=== PATIENT | male | born 1955 | race Caucasian/White ===

== ENCOUNTER 2020-10-28 07:25 | Day surgery (SDC) | payer OTHER, MEDICARE ==
[~2020-10-28] VITALS: Ht 177.8 cm; Wt 100.0 kg
[~2020-10-28 07:25] MED LIST: CELLCEPT500 MG PO; ELIQUIS5 MG PO; PREDNISONE20 MG PO; PROSTATE PQ TA1 EACH PO; SYNTHROID100 MCG PO; ZESTRIL10 MG PO
--- NOTE | 2020-10-28 08:35 | NUR ---
PATIENT UP TO BATHROOM TO VOID. STEADY ON FEET. STARTED PRE-OP ANTIBIOTICS. INFUSING WELL. AT BEDSIDE, CALL LIGHT WITHIN REACH. NO OTHER NEEDS AT THIS TIME.
--- NOTE | 2020-10-28 09:55 | NUR ---
10/28/20 0955 Bianca Mtz 0948; PT ARRIVES TO PACU VIA STRETCHER FOR RECOVERY. NON AROUSABLE WITH OPA IN PLACE. O2 SATS STABLE >96% ON 10L VIA FACEMASK. OXYGEN TURNED DOWN TO 4L AND O2 SATS REMAIN >96%. RESP [facility] AND UNLABORED.
--- NOTE | 2020-10-29 16:02 | OR ---
[facility] [address] [place], [place] [address] Signed DATE OF OPERATION: 10/28/2020 SURGEON: Bora Presley MD PREOPERATIVE DIAGNOSES: 1. Surveillance. 2. Multiple medical comorbidities. POSTOPERATIVE DIAGNOSES: 1. Surveillance. 2. Multiple medical comorbidities. 3. Small polyp at 40 cm (excised) and sigmoid diverticulosis extensive. PROCEDURE: Total colonoscopy to cecum with cold morcellation polypectomy x1. ANESTHESIA: Intravenous sedation, propofol infusion, Bora Taylor CRNA. INDICATIONS: This 64-year-old white man is self-referred for surveillance colonoscopy. He last underwent colonoscopy by in [place], [place], which was said to be normal. He has no current symptoms of bleeding, diarrhea, or constipation and no family history of colon cancer. He has numerous medical problems including underlying interstitial lung disease diagnosed in 1985. He is a patient of Dr. Thomas, business administration program chair in [place], [place]. He is admitted at this time to undergo colonoscopy, understanding the risks of bleeding, infection, and perforation. His apixaban has been withheld. Preoperative antibiotic Ancef given based on joint replacement therapy and stress dose steroid, given persistent prednisone use. FINDINGS: The prep was excellent. Complete colonoscopy was undertaken to the cecum without question. Good visualization of the ileocecal valve and appendiceal orifice was noted. There were numerous diverticula of the sigmoid colon and scattered diverticula elsewhere. There was a small adenomatous-appearing polyp at 40 cm, which was excised with cold morcellation technique entirely. There were no known complications with the procedure. DESCRIPTION OF PROCEDURE: The patient was brought to the endoscopy suite and placed in lateral decubitus position, Electronically Signed By: BORA PRESLEY MD 10/29/20 1602 PATIENT NAME: KARIS GODINEZ OPERATIVE REPORT DATE OF : 51 REPORT #: [id number] PHYSICIAN: BORA PRESLEY MD PCP: GAETANO THOMAS REPORT IS CONFIDENTIAL AND NOT TO BE RELEASED WITHOUT AUTHORIZATION [facility] [address], [place] [address] Signed given intravenous sedation to point of deep sedation by the outreach representative with propofol infusional technique. Full cardiopulmonary monitoring was maintained. Preoperative antibiotic Ancef was given as well as hydrocortisone. Digital rectal examination was found to be normal. An Olympus video colonoscope was passed in the rectum and manipulated throughout the colon ultimately intubating the cecum itself. The ileocecal valve was normal. The scope was withdrawn from that point and examination undertaken showing scattered diverticula throughout the colon. At approximately 40 cm from the anal verge, there was an adenomatous-appearing polyp, this was excised with cold morcellation technique entirely. Numerous diverticula were seen distal to this in the sigmoid colon, none of them acutely inflamed. Retroflexed view showed some internal hemorrhoidal change, but no other findings of concern. The scope was straightened, withdrawn, and removed and the patient was taken to the recovery room in good condition. CONCLUDING DIAGNOSES: 1. Diverticulosis of sigmoid. 2. Small polyp, left colon. PLAN: Recommend repeat colonoscopy in 5 years sooner if clinically indicated. We would recommend restart of his Eliquis on Saturday (today is Saturday). He will return to the ongoing care of Dr. Thomas in [facility] as needed as well. Bora Presley MD JM/MODL /[id number] cc: Gaetano Thomas Copies: GAETANO THOMAS ~ Electronically Signed By: BORA PRESLEY MD 10/29/20 1602 PATIENT NAME: KARIS GODINEZ OPERATIVE REPORT DATE OF : 51 REPORT #: [id number] PHYSICIAN: BORA PRESLEY MD PCP: GAETANO THOMAS REPORT IS CONFIDENTIAL AND NOT TO BE RELEASED WITHOUT AUTHORIZATION
--- NOTE | 2020-10-31 12:11 | PATH ---
[facility] [address] [place], [place] [address] Signed SPECIMEN(S): A COLON POLYP AT 50 CM SPECIMEN SOURCE: A. COLON POLYP AT 50 CM CLINICAL HISTORY: Screening colonoscopy. Postop: Diverticulosis, polyp x 1. MICROSCOPIC DESCRIPTION: Histologic sections of all submitted blocks are examined by light microscopy. These findings, together with the gross examination, support the pathologic diagnosis. FINAL PATHOLOGIC DIAGNOSIS: Colon, polyp at 50 cm, polypectomy: - Fragments of tubular adenoma. - Negative for high-grade dysplasia or malignancy. NAL:cml:C2NR GROSS DESCRIPTION: The specimen, labeled "CB," and designated on the requisition "colon polypectomy at 50 cm," is received in formalin and consists of six fragments of pink-lockhart tissue (0.7 x 0.5 x 0.1 cm in aggregate). The specimen is submitted entirely in cassette (A1). AC (under the direct supervision of a pathologist The Gross Description was prepared using a voice recognition system. The report was reviewed for accuracy; however, sound-alike word errors, addition and/or deletions may occur. If there is any question about this report, please contact Client Services. PERFORMING LABORATORY: The technical component was performed by [facility], [address] [place] [id number] (Contact Centre Supervisor: Amy Costello MD; CLIA# [id number]). [email or web address], [address] [address] (CLIA# [id number]). Diagnostician: Leslye Negron MD Pathologist Electronically Signed 10/31/2020 PATIENT NAME: KARIS GODINEZ PATHOLOGY DATE OF : 51 REPORT #: [id number] PHYSICIAN: MADALYN PATHOLOGY PCP: RUDDY BOWDEN REPORT IS CONFIDENTIAL AND NOT TO BE RELEASED WITHOUT AUTHORIZATION [facility] [address] [place] [id number] Signed Copies: ~ PATIENT NAME: KARIS GODINEZ PATHOLOGY DATE OF : 51 REPORT #: [id number] PHYSICIAN: MADALYN PATHOLOGY PCP: RUDDY BOWDEN REPORT IS CONFIDENTIAL AND NOT TO BE RELEASED WITHOUT AUTHORIZATION
== END 2020-10-28 10:45 | disposition home or self-care (01) ==
LOC: DS 07:25 → OPS 07:25 → DS 07:30 → OPS 07:30
PROVIDERS: ATTEND Surgery
PROC: 0DBG8ZX Excision of Left Large Intestine, Via Natural or Artificial Opening Endoscopic, Diagnostic (ICD-10-PCS; principal; 2020-10-28 08:00)
DX: Z12.11 Encounter for screening for malignant neoplasm of colon (principal); D12.4 Benign neoplasm of descending colon; K57.30 Diverticulosis of large intestine without perforation or abscess without bleeding; I10 Essential (primary) hypertension; E78.5 Hyperlipidemia, unspecified; E03.9 Hypothyroidism, unspecified; J84.9 Interstitial pulmonary disease, unspecified; Z88.0 Allergy status to penicillin; Z86.711 Personal history of pulmonary embolism; Z79.01 Long term (current) use of anticoagulants; Z96.641 Presence of right artificial hip joint
CPT/HCPCS: J1720; J2704; J7121